=== PATIENT | female | born 1975 | race Caucasian/White ===

== ENCOUNTER 2017-03-24 19:02 | Emergency (ER) | payer OTHER ==
[~2017-03-24] VITALS: Ht 170.2 cm; Wt 88.5 kg
[~2017-03-24 19:02] MED LIST: ACETAMINOPHEN-1 EAC1 PO; ALBUTEROL INHAL17 GM IH; ALBUTEROL2.5 MG/31 INH; AZITHROMYCIN 2250 MG PO; BACTRIM DS TAB1 EACH PO; CARISOPRODOL 3350 MG PO; DOXYCYCLINE 10100 MG PO; FLEXERIL PO; HYDROCODON-ACE1 EACH PO; IBUPROFEN 800800 M1 PO; MEDROL DOSPAK21 TA1 PO; MEDROLDOSEPACK PO; MUCINEX D ER 11 EACH PO; NOHOMEMEDICATIONS; NORCO 5-325 TA1 EAC1 PO; NORCO 5-325 TA1 EACH PO; ONDANSETRON HCL4 M2 PO; PHENERGAN 25 MG25 M1 PO; PREDNISONE 20 M20 M1 PO; PROMETHAZINE-D120 ML PO; TRAMADOL 50 MG50 MG PO; ULTRAM 50MG TAB50 MG PO; ZOFRAN ODT4 MG PO; ZOFRAN4 MG PO
[2017-03-24 20:20] LABS: INFLUENZA A ANTIGEN None Detected (None Detect); INFLUENZA B ANTIGEN None Detected (None Detect)
[2017-03-24] MEDS ORDERED: PREDNISONE 20 M20 M1 PO (21:00)
[2017-03-24] MEDS ORDERED: ALBUTEROL2.5 MG/31 INH (21:00)
[2017-03-24] MEDS ORDERED: ZPAK PO (21:00)
[2017-03-24 21:12] VITALS: BP 178/87
== END 2017-03-24 21:13 | disposition home or self-care (01) ==
LOC: M.ERS 19:02
PROVIDERS: Nurse Practitioner Family
DX: J20.9 Acute bronchitis, unspecified (principal); I10 Essential (primary) hypertension; J45.909 Unspecified asthma, uncomplicated; F31.9 Bipolar disorder, unspecified; Z77.22 Contact with and (suspected) exposure to environmental tobacco smoke (acute) (chronic)

== ENCOUNTER 2017-04-02 18:20 | Emergency (ER) | payer OTHER ==
[~2017-04-02] VITALS: Ht 170.2 cm; Wt 93.0 kg
[~2017-04-02 18:20] MED LIST changes: +ZPAK PO
[2017-04-02] MEDS ORDERED: PREDNISONE 10 M10 M1 PO (18:48)
[2017-04-02] MEDS ORDERED: TESSALON PERLE100 MG PO (18:51)
[2017-04-02 19:15] VITALS: BP 141/75
== END 2017-04-02 19:18 | disposition home or self-care (01) ==
LOC: M.ERS 18:20
DX: J20.9 Acute bronchitis, unspecified (principal); I10 Essential (primary) hypertension; J45.909 Unspecified asthma, uncomplicated; F31.9 Bipolar disorder, unspecified; Z77.22 Contact with and (suspected) exposure to environmental tobacco smoke (acute) (chronic)

== ENCOUNTER 2017-12-06 17:15 | Emergency (ER) | payer OTHER ==
[~2017-12-06] VITALS: Ht 165.1 cm; Wt 97.5 kg
[~2017-12-06 17:15] MED LIST changes: +PREDNISONE 10 M10 M1 PO; +TESSALON PERLE100 MG PO
[2017-12-06 18:05] LABS: INFLUENZA A ANTIGEN None Detected (None Detect); INFLUENZA B ANTIGEN None Detected (None Detect)
[2017-12-06] MEDS ORDERED: PROAIR HFA8.5 GM INH (18:09)
[2017-12-06] MEDS ORDERED: PREDNISONE 5 MG5 MG PO (18:09)
[2017-12-06] MEDS ORDERED: ZPAK PO (18:09)
[2017-12-06 18:16] VITALS: BP 131/90
== END 2017-12-06 18:17 | disposition home or self-care (01) ==
LOC: M.ERS 17:15
PROVIDERS: Physician Assistant
DX: J20.9 Acute bronchitis, unspecified (principal); I10 Essential (primary) hypertension; F31.9 Bipolar disorder, unspecified; J45.909 Unspecified asthma, uncomplicated; Z77.22 Contact with and (suspected) exposure to environmental tobacco smoke (acute) (chronic)

== ENCOUNTER 2018-06-09 19:24 | Emergency (ER) | payer OTHER ==
[~2018-06-09] VITALS: Ht 170.2 cm; Wt 95.3 kg
[~2018-06-09 19:24] MED LIST changes: +PREDNISONE 5 MG5 MG PO; +PROAIR HFA8.5 GM INH
[2018-06-09 20:34] LABS: URINE BILIRUBIN NEGATIVE (Negative); URINE BLOOD NEGATIVE (Negative); URINE CLARITY CLEAR; URINE COLOR YELLOW; URINE GLUCOSE-RANDOM NEGATIVE (Negative); URINE KETONES NEGATIVE (Negative); URINE LEUKOCYTES-REFLEX NEGATIVE (Negative); URINE NITRITE-REFLEX NEGATIVE (Negative); URINE PROTEIN NEGATIVE (Negative); URINE SPECIFIC GRAVITY 1.015 (1.005-1.030)
[2018-06-09] MEDS ORDERED: NORCO 7.5-3251 EACH PO (20:46)
[2018-06-09] MEDS ORDERED: TRAMADOL 50 MG50 MG PO (21:05)
[2018-06-09 21:17] VITALS: BP 160/87
== END 2018-06-09 21:19 | disposition home or self-care (01) ==
LOC: M.ERS 19:24
PROVIDERS: Emergency Medicine
DX: S20.222A Contusion of left back wall of thorax, initial encounter (principal); I10 Essential (primary) hypertension; F31.9 Bipolar disorder, unspecified; J45.909 Unspecified asthma, uncomplicated; Z77.22 Contact with and (suspected) exposure to environmental tobacco smoke (acute) (chronic); W01.198A Fall on same level from slipping, tripping and stumbling with subsequent striking against other object, initial encounter; Y92.002 Bathroom of unspecified non-institutional (private) residence as the place of occurrence of the external cause; Y93.89 Activity, other specified; Y99.8 Other external cause status

== ENCOUNTER 2018-08-22 08:16 | Emergency (ER) | payer OTHER ==
[~2018-08-22] VITALS: Ht 170.2 cm; Wt 90.7 kg
[~2018-08-22 08:16] MED LIST changes: +NORCO 7.5-3251 EACH PO
[2018-08-22] MEDS ORDERED: BACTRIM DS TAB1 EAC1 PO (09:14)
[2018-08-22] MEDS ORDERED: MUPIROCIN22 GM TOP (09:14)
[2018-08-22] MEDS ORDERED: PATANOL5 ML OPHTHALMIC (09:14)
[2018-08-22 09:22] VITALS: BP 199/77
== END 2018-08-22 09:23 | disposition home or self-care (01) ==
LOC: M.ERS 08:16
DX: L02.211 Cutaneous abscess of abdominal wall (principal); H10.10 Acute atopic conjunctivitis, unspecified eye; I10 Essential (primary) hypertension; F31.9 Bipolar disorder, unspecified; J45.909 Unspecified asthma, uncomplicated; Z77.22 Contact with and (suspected) exposure to environmental tobacco smoke (acute) (chronic)

== ENCOUNTER 2018-11-07 13:12 | Emergency (ER) | payer OTHER ==
[~2018-11-07] VITALS: Ht 170.2 cm; Wt 95.3 kg
[~2018-11-07 13:12] MED LIST changes: +BACTRIM DS TAB1 EAC1 PO; +MUPIROCIN22 GM TOP; +PATANOL5 ML OPHTHALMIC
[2018-11-07] MEDS ORDERED: ALBUTEROL2.5 MG/31 INH (13:23)
[2018-11-07] MEDS ORDERED: VENTOLIN HFA 1818 GM INH (13:24)
[2018-11-07 14:33] LABS: ABSOLUTE BASOPHILS 0.1 thou/uL (0.0-0.2); ABSOLUTE EOSINOPHILS 0.2 thou/uL (0.0-0.7); ABSOLUTE LYMPHOCYTES 1.4 thou/uL (0.8-5.3); ABSOLUTE MONOCYTES 0.7 thou/uL (0.0-1.2); ABSOLUTE NEUTROPHILS 8.8 thou/uL (1.6-8.1); EOSINOPHILS 1.9 %; HEMATOCRIT 22.9 % (37.0-47.0); LYMPHOCYTES 12.5 %; MCH 17.3 pg (26.0-34.0); MCHC 28.6 g/dL (28.0-37.0); MCV 60.5 fL (80.0-100.0); MONOCYTES 6.2 %; MPV 8.4 fl. (7.2-11.1); NUCLEATED RBCS 0 /100WBC; PLATELET COUNT* 322 thou/uL (150-400); POLYS 78.4 %; RBC 3.79 mil/uL (4.20-5.00); RDW-CV 20.8 % (10.5-14.5); WBC 11.3 thou/uL (4.0-11.0)
[2018-11-07 14:38] LABS: HEMOGLOBIN 6.6 gm/dL (12.0-15.0)
[2018-11-07 14:42] LABS: ANION GAP 9 mmol/L (7-16); BUN 11 mg/dL (7-18); CALCIUM 7.9 mg/dL (8.5-10.1); CHLORIDE 104 mmol/L (98-107); CO2 23 mmol/L (21-32); GLUCOSE 92 mg/dL (70-99); POTASSIUM 4.7 mmol/L (3.5-5.1); SODIUM 136 mmol/L (136-145)
[2018-11-07 14:52] LABS: PLATELET ESTIMATE ADEQUATE
[2018-11-07 14:54] LABS: ALBUMIN 3.2 g/dL (3.4-5.0); ALKALINE PHOSPHATASE 62 U/L (46-116); NT-PRO BRAIN NAT PEPTIDE 649 pg/mL (<300); SGOT 17 U/L (15-37); SGPT 23 U/L (30-65); TOTAL BILIRUBIN 0.4 mg/dL (<0.1-1.0); TOTAL PROTEIN 6.9 g/dL (6.4-8.2); TROPONIN-I LEVEL <0.06 ng/mL (<0.06)
[2018-11-07 20:38] VITALS: BP 168/86
== END 2018-11-07 20:55 | disposition left against medical advice (07) ==
LOC: M.ERS 13:12
PROVIDERS: Physician Assistant
DX: D64.9 Anemia, unspecified (principal); R06.00 Dyspnea, unspecified; N93.8 Other specified abnormal uterine and vaginal bleeding; I10 Essential (primary) hypertension; F31.9 Bipolar disorder, unspecified; J45.909 Unspecified asthma, uncomplicated; Z77.22 Contact with and (suspected) exposure to environmental tobacco smoke (acute) (chronic)

== ENCOUNTER 2019-09-21 15:25 | Emergency (ER) | payer OTHER ==
[~2019-09-21] VITALS: Ht 170.2 cm; Wt 104.3 kg
[~2019-09-21 15:25] MED LIST changes: +VENTOLIN HFA 1818 GM INH
[2019-09-21] MEDS ORDERED: NORVASC5 M1 PO (15:40)
[2019-09-21] MEDS ORDERED: ZESTRIL40 MG PO (15:40)
[2019-09-21] MEDS ORDERED: SLOW FE142 MG PO (15:41)
[2019-09-21 15:50] LABS: NUCLEATED RBCS 0 /100WBC
[2019-09-21 16:04] LABS: WBC ND thou/uL (4.0-11.0)
[2019-09-21 16:05] LABS: HEMATOCRIT ND % (37.0-47.0); HEMOGLOBIN ND gm/dL (12.0-15.0); RBC ND mil/uL (4.20-5.00)
[2019-09-21 16:06] LABS: MCH ND pg (26.0-34.0); MCHC ND g/dL (28.0-37.0); MCV ND fL (80.0-100.0); RDW-CV ND % (10.5-14.5)
[2019-09-21 16:07] LABS: MPV ND fl. (7.2-11.1); PLATELET COUNT* ND thou/uL (150-400); POLYS ND %
[2019-09-21 16:08] LABS: BASOPHILS ND %; EOSINOPHILS ND %; LYMPHOCYTES ND %; MONOCYTES ND %
[2019-09-21 16:09] LABS: ABSOLUTE EOSINOPHILS ND thou/uL (0.0-0.7); ABSOLUTE LYMPHOCYTES ND thou/uL (0.8-5.3); ABSOLUTE MONOCYTES ND thou/uL (0.0-1.2); ABSOLUTE NEUTROPHILS ND thou/uL (1.6-8.1)
[2019-09-21 16:10] LABS: ABSOLUTE BASOPHILS ND thou/uL (0.0-0.2)
[2019-09-21 16:12] LABS: URINE BILIRUBIN NEGATIVE (Negative); URINE BLOOD NEGATIVE (Negative); URINE CLARITY CLEAR; URINE COLOR YELLOW; URINE GLUCOSE-RANDOM NEGATIVE (Negative); URINE KETONES NEGATIVE (Negative); URINE LEUKOCYTES-REFLEX NEGATIVE (Negative); URINE NITRITE-REFLEX NEGATIVE (Negative); URINE PROTEIN NEGATIVE (Negative); URINE SPECIFIC GRAVITY 1.025 (1.005-1.030); URINE UROBILINOGEN 0.2 E.U./dl (0.2-1.0)
[2019-09-21 16:14] LABS: CALCIUM 8.6 mg/dL (8.5-10.1); POTASSIUM 4.4 mmol/L (3.5-5.1)
[2019-09-21 16:17] LABS: ABSOLUTE BASOPHILS 0.1 thou/uL (0.0-0.2); ABSOLUTE EOSINOPHILS 0.1 thou/uL (0.0-0.7); ABSOLUTE LYMPHOCYTES 2.5 thou/uL (0.8-5.3); ABSOLUTE MONOCYTES 0.5 thou/uL (0.0-1.2); ABSOLUTE NEUTROPHILS 7.4 thou/uL (1.6-8.1); BASOPHILS 0.9 %; HEMATOCRIT 42.4 % (37.0-47.0); HEMOGLOBIN 13.4 gm/dL (12.0-15.0); LYMPHOCYTES 23.5 %; MCH 22.4 pg (26.0-34.0); MCHC 31.5 g/dL (28.0-37.0); MCV 71.2 fL (80.0-100.0); MONOCYTES 4.7 %; NUCLEATED RBCS 0 /100WBC; PLATELET COUNT* 392 thou/uL (150-400); POLYS 69.9 %; RBC 5.96 mil/uL (4.20-5.00); RDW-CV 24.7 % (10.5-14.5); WBC 10.5 thou/uL (4.0-11.0)
[2019-09-21 16:19] LABS: ALBUMIN 3.9 g/dL (3.4-5.0); TOTAL BILIRUBIN 0.3 mg/dL (<0.1-1.0); TOTAL PROTEIN 8.4 g/dL (6.4-8.2)
[2019-09-21] MEDS ORDERED: ZOFRAN ODT4 MG PO (16:39)
[2019-09-21 16:54] LABS: ANISOCYTOSIS 2+; HYPOCHROMASIA 1+; PLATELET ESTIMATE ADEQUATE
[2019-09-21 16:55] LABS: MICROCYTES 2+
[2019-09-21 17:28] VITALS: BP 153/76
== END 2019-09-21 17:31 | disposition home or self-care (01) ==
LOC: M.ERS 15:25
PROVIDERS: Nurse Practitioner Psychiatric/Mental Health
DX: R11.2 Nausea with vomiting, unspecified (principal); R19.7 Diarrhea, unspecified; I10 Essential (primary) hypertension; Z20.828 Contact with and (suspected) exposure to other viral communicable diseases; J45.909 Unspecified asthma, uncomplicated; Z77.22 Contact with and (suspected) exposure to environmental tobacco smoke (acute) (chronic)

== ENCOUNTER 2020-10-22 12:24 | Emergency (ER) | payer OTHER ==
[~2020-10-22] VITALS: Ht 170.2 cm; Wt 104.3 kg
[~2020-10-22 12:24] MED LIST changes: +NORVASC5 M1 PO; +SLOW FE142 MG PO; +ZESTRIL40 MG PO
[2020-10-22] MEDS ORDERED: FLONASE 0.05%50 MCG NARES (12:55)
[2020-10-22] MEDS ORDERED: ZOFRAN ODT4 MG PO (12:55)
[2020-10-22] MEDS ORDERED: AMOXICILLIN 50500 MG PO (13:00)
[2020-10-22 13:07] VITALS: BP 154/96
== END 2020-10-22 13:08 | disposition home or self-care (01) ==
LOC: M.ERS 12:24
DX: R09.81 Nasal congestion (principal); I10 Essential (primary) hypertension; J45.909 Unspecified asthma, uncomplicated; Z77.22 Contact with and (suspected) exposure to environmental tobacco smoke (acute) (chronic)